=== PATIENT | female | born 1975 | race Hispanic/Latino ===

== ENCOUNTER 2018-09-06 08:53 | Day surgery (SDC) | payer BC ==
[2018-08-28 08:19] VITALS: BMI 45.1
[2018-09-06] MEDS ORDERED: Propofol 10 mg/ml Inj (20 ML) ONE ×2 (10:07→10:17)
[2018-09-06] MEDS ORDERED: Sodium Chloride 0.9% 1,000 ML IV SCH (10:45)
[2018-09-06 10:54] VITALS: RESP 18; TEMP 97.5; O2SAT 98
[2018-09-06 11:16] VITALS: BP 113/73; PULSE 71
== END 2018-09-06 12:15 | disposition home or self-care (01) ==
LOC: ENDO 08:53
PROVIDERS: ATTEND Internal Medicine Gastroenterology
DX: Z01.818 Encounter for other preprocedural examination (principal); E66.01 Morbid (severe) obesity due to excess calories; Z68.42 Body mass index [BMI] 45.0-49.9, adult; K29.70 Gastritis, unspecified, without bleeding; B96.81 Helicobacter pylori [H. pylori] as the cause of diseases classified elsewhere; K29.80 Duodenitis without bleeding
CPT/HCPCS: 43239; 84703; 88305; 88342; J2001; J2704; J7030; J7040